=== PATIENT | male | born 1995 | race Caucasian/White ===

== ENCOUNTER 2020-09-16 06:22 | Emergency (ER) | payer MEDICAID ==
[~2020-09-16] VITALS: Ht 170.2 cm; Wt 72.6 kg
[2020-09-16 06:26] VITALS: BP_SYST 124
--- NOTE | 2020-09-16 06:26 | NUR ---
Patient to ER bed hw 1 for evaluation.
--- NOTE | 2020-09-16 06:26 | NUR ---
BIB Officer in custody for medical clearance. Patient to ER bed for examination and ok to book.
--- NOTE | 2020-09-16 06:36 | NUR ---
Patient given written and verbal discharge instructions and verbalizes understanding. ER MD discussed with patient the results and treatment provided. Patient in stable condition. ID arm band removed. intact and Patient educated on pain management and to follow up with PMD. Pain Scale . Opportunity for questions provided and answered. Medication side effect fact sheet provided.
== END 2020-09-16 06:37 ==
LOC: SED 06:22
DX: S69.91XA Unspecified injury of right wrist, hand and finger(s), initial encounter (principal); W18.39XA Other fall on same level, initial encounter; Y93.89 Activity, other specified; Y92.89 Other specified places as the place of occurrence of the external cause; Y99.8 Other external cause status
CPT/HCPCS: 99283

== ENCOUNTER 2020-12-19 10:53 | Emergency (ER) | payer MEDICAID ==
[~2020-12-19] VITALS: Ht 167.6 cm; Wt 64.4 kg
[2020-12-19 10:56] VITALS: BP_SYST 130
[2020-12-19 11:19] VITALS: BP_SYST 130
== END 2020-12-19 11:14 ==
LOC: SED 10:53
DX: S60.511A Abrasion of right hand, initial encounter (principal); Z88.1 Allergy status to other antibiotic agents; X78.8XXA Intentional self-harm by other sharp object, initial encounter; Y93.89 Activity, other specified; Y92.89 Other specified places as the place of occurrence of the external cause; Y99.8 Other external cause status
CPT/HCPCS: 99283

== ENCOUNTER 2021-01-04 03:56 | Emergency (ER) | payer MEDICAID ==
[~2021-01-04] VITALS: Ht 170.2 cm; Wt 63.0 kg
[2021-01-04 04:00] VITALS: BP_SYST 125
[2021-01-04] MEDS ORDERED: IBUP-1970 PO (06:06)
[2021-01-04 06:10] VITALS: BP_SYST 125
== END 2021-01-04 06:10 | disposition home or self-care (01) ==
LOC: SED 03:56
DX: I86.1 Scrotal varices (principal); M84.441A Pathological fracture, right hand, initial encounter for fracture; Z88.1 Allergy status to other antibiotic agents; Z88.6 Allergy status to analgesic agent; Z79.899 Other long term (current) drug therapy
CPT/HCPCS: 76870-TC; 99284

== ENCOUNTER 2023-09-29 15:48 | Emergency (ER) | payer MEDICAID ==
[~2023-09-29] VITALS: Ht 167.6 cm; Wt 65.8 kg
[~2023-09-29 15:48] MED LIST: IBUP-1970 PO
[2023-09-29 17:05] VITALS: BP_SYST 115; PULSE 95; RESP 18; TEMP 98; O2SAT 97
[2023-09-29] MEDS ORDERED: CEPH-548 PO (17:52)
[2023-09-29] MEDS ORDERED: SULF1TAB48 PO (17:52)
[2023-09-29 18:30] VITALS: BP_SYST 121; PULSE 91; RESP 18; TEMP 97.7; O2SAT 97
== END 2023-09-29 18:30 | disposition home or self-care (01) ==
LOC: SED 15:48
DX: L03.115 Cellulitis of right lower limb (principal); Z79.899 Other long term (current) drug therapy; Z88.1 Allergy status to other antibiotic agents
CPT/HCPCS: 99283